=== PATIENT | male | born 1950 | race Native Hawaiian/Other Pacific Islander ===

== ENCOUNTER 2017-03-03 20:40 | Emergency (ER) | payer MEDICARE ==
[2017-03-03 20:40] VITALS: BMI 26.6
[2017-03-03] MEDS ORDERED: Sodium Chloride 0.9% 1,000 ML IV ONE (21:11)
--- NOTE | 2017-03-03 21:11 | C.PDOC ---
History Of Present Illness 66 y/o male pmhx kidney stones presents to the ED with complains of sharp, stabbing right flank pain for the past few days with associated nausea. Denies vomiting, dysuria, hematuria or any other complaints. Time Seen by Provider: 03/03/17 21:11 Chief Complaint (Nursing): Male Genitourinary History Per: Patient History/Exam Limitations: no limitations Onset/Duration Of Symptoms: Days Current Symptoms Are (Timing): Still Present Severity: Moderate Quality Of Discomfort: Sharp, Stabbing Associated Symptoms: Nausea. denies: Fever, Chills, Vomiting, Urinary Symptoms Alleviating Factors: None Recent travel outside of the [place]: No Past Medical History Reviewed: Historical Data, Nursing Documentation, Vital Signs Vital Signs: Last Vital Signs Temp 97.7 F 03/03/17 20:58 Pulse 58 L 03/03/17 20:58 Resp 18 03/03/17 20:58 BP 225/82 H 03/03/17 20:58 Pulse Ox 99 03/03/17 21:25 - Medical History PMH: HTN, Hypercholesterolemia, Kidney Stones (1990, 2014), Chronic Kidney Disease - [facility] Procedures DILATION OF LEFT URETER WITH INTRALUMINAL DEVICE, ENDO (11/09/15) Family History: States: Unknown Family Hx - Social History Hx Alcohol Use: No (not alcholic occ parties) Hx Substance Use: No - Immunization History Hx Tetanus Toxoid Vaccination: No Hx Influenza Vaccination: Yes Hx Pneumococcal Vaccination: No Review Of Systems Constitutional: Negative for: Fever, Chills Gastrointestinal: Positive for: Nausea. Negative for: Vomiting, Abdominal Pain Genitourinary: Negative for: Dysuria, Hematuria Musculoskeletal: Positive for: Other (right flank pain) Skin: Negative for: Rash, Lesions, Jaundice, Bruising Neurological: Negative for: Weakness Psych: Negative for: Anxiety Physical Exam - Physical Exam Appears: Non-toxic, No Acute Distress Skin: Warm, Dry, No Rash Chest: Symmetrical Cardiovascular: Rhythm Regular, No Murmur Respiratory: No Rales, No Rhonchi, No Wheezing Gastrointestinal/Abdominal: Soft, No Tenderness, No Guarding, No Rebound Back: CVA Tenderness (r), Other (right flank pain) Male Genital: No Testicular Swelling, No Inguinal Tenderness, No Inguinal Swelling, No Scrotal Swelling Extremity: Normal ROM Extremity: Bilateral: Atraumatic Neurological/Psych: Oriented x3, Normal Speech, Normal Cognition Gait: Steady ED Course And Treatment - Laboratory Results Result Diagrams: 03/03/17 21:28 03/03/17 21:28 O2 Sat by Pulse Oximetry: 99 (room air) Pulse Ox Interpretation: Normal Reevaluation Time: 22:30 Reassessment Condition: Improved Disposition Counseled Patient/Family Regarding: Studies Performed, Diagnosis, Need For Followup, Rx Given - Disposition Referrals: Rosi Arora MD [Primary Care Provider] - Disposition: HOME/ ROUTINE Disposition Time: 21:11 Condition: FAIR Prescriptions: Ibuprofen [Motrin] 600 mg PO TID PRN #15 tab PRN Reason: Pain, Moderate (4-7) Tamsulosin HCl [Flomax] 0.4 mg PO DAILY #15 cap.er.24h Instructions: Renal Colic (ED), Kidney Stones (DC) - Clinical Impression Clinical Impression: Renal colic on right side, Kidney stone on right side - Scribe Statement The provider has reviewed the documentation as recorded by the Nigel Chen Provider Attestation: All medical record entries made by the Nigel were at my direction and personally dictated by me. I have reviewed the chart and agree that the record accurately reflects my personal performance of the history, physical exam, medical decision making, and the department course for this patient. I have also personally directed, reviewed, and agree with the discharge instructions and disposition.
[2017-03-03] MEDS ORDERED: Sodium Chloride 0.9% 1,000 ML ONE (21:28)
[2017-03-03 21:34] LABS: RBC URINE 25 /hpf (0-3); URINE BACTERIA RARE (<OCC); URINE BILIRUBIN NEGATIVE (NEGATIVE); URINE BLOOD 2+ (NEGATIVE); URINE COLOR Straw (YELLOW); URINE GLUCOSE (UA) 3+ mg/dL (Normal); URINE KETONE NEGATIVE (NEGATIVE); URINE LEUKOCYTE ESTERASE NEG Leu/uL (Negative); URINE PROTEIN 2+ mg/dL (NEGATIVE); URINE UROBILINOGEN NORMAL mg/dL (0.2-1.0); WBC URINE < 1 /hpf (0-5)
[2017-03-03 21:37] LABS: BASO # 0.1 K/uL (0.0-0.2); BASO % 0.9 % (0.0-2.0); EOS # 0.3 K/uL (0.0-0.7); EOS % 2.5 % (0.0-4.0); HEMATOCRIT 43.8 % (35.0-51.0); LYMPH # 2.3 K/uL (1.0-4.3); LYMPH % 21.2 % (20.0-40.0); MEAN CELL VOLUME 89.5 fL (80.0-94.0); MEAN CORPUSCULAR HEMOGLOBIN 29.8 pg (27.0-31.0); MEAN CORPUSCULAR HGB CONC 33.3 g/dL (33.0-37.0); MEAN PLATELET VOLUME 9.4 fL (7.2-11.7); MONO # 0.5 K/uL (0.0-0.8); MONO % 5.1 % (0.0-10.0); RED CELL DISTRIBUTION WIDTH 13.9 % (11.5-14.5); WHITE BLOOD COUNT 10.7 K/uL (4.8-10.8)
[2017-03-03 21:45] LABS: POTASSIUM 4.3 mmol/L (3.6-5.2)
[2017-03-03 21:47] LABS: ALB/GLOB RATIO 1.6 (1.0-2.1); BILIRUBIN,TOTAL 1.2 mg/dL (0.2-1.3); TOTAL PROTEIN 7.3 g/dL (6.3-8.3)
[2017-03-03 21:48] LABS: CALCIUM 8.4 mg/dl (8.6-10.4)
--- NOTE | 2017-03-03 22:27 | CT ---
EXAM: CT Abdomen and Pelvis Without Intravenous Contrast CLINICAL HISTORY: 66 years old, male; Pain and condition or disease; Kidney or ureter condition; Other: Rt inguinal pain and dysuria; Abdominal pain; Flank; Right lower quadrant (rlq); Additional info: R flank pain TECHNIQUE: Axial computed tomography images of the abdomen and pelvis without intravenous contrast. This CT exam was performed using one or more of the following dose reduction techniques: automated exposure control, adjustment of the mA and/or kV according to patient size, and/or use of iterative reconstruction technique. Coronal and sagittal reformatted images were created and reviewed. COMPARISON: CT - ABD PELVIS PO CONTRAST ONLY 11/09/2015 3:27:16 AM FINDINGS: Lower thorax: Minimal atelectasis/scarring. ABDOMEN: Liver: Unremarkable. Gallbladder and bile ducts: No calcified stones. No ductal dilation. Pancreas: 1.5 x 1.7 x 1.6 cm lesion within tail of pancreas, grossly stable. No ductal dilation. Spleen: No splenomegaly. Adrenals: No mass. Kidneys and ureters: Moderate stranding/fluid about RIGHT kidney. Faint punctate calculus within RIGHT kidney. Mild pelvocaliectasis of RIGHT kidney. Mildly dilated RIGHT proximal ureter. 0.3 x 0.3 x 0.3 cm calculus within RIGHT proximal to mid ureter. Stomach and bowel: No definite mural thickening. No obstruction. Small area of fat necrosis adjacent to sigmoid colon. Appendix: Normal caliber. No inflammation. PELVIS: Bladder: Unremarkable. No stones. Reproductive: Unremarkable as visualized. ABDOMEN and PELVIS: Intraperitoneal space: No significant fluid collection. No free air. Bones/joints: Mild degenerative changes of spine. Degenerative anterolisthesis of lower lumbar spine. No acute fracture. Soft tissues: Unremarkable. Vasculature: Unremarkable. No abdominal aortic aneurysm. Lymph nodes: No pathologically enlarged lymph nodes. IMPRESSION: 1. RIGHT proximal to mid ureteral calculus with mild hydroureteronephrosis. 2. Pancreatic lesion, grossly stable. Consider MRI for further characterization. 3. Incidental/non-acute findings are described above.
[2017-03-03 22:54] VITALS: BP 189/85; PULSE 53; RESP 17; TEMP 97.5; O2SAT 100
== END 2017-03-03 23:00 | disposition home or self-care (01) ==
LOC: C.ER 20:40 → SUPCPDRO 20:40 → C.ER 23:00
DX: N20.0 Calculus of kidney (principal)
CPT/HCPCS: 74176; 80053; 81001; 83690; 85025; 96361; 96374; 96375; 99285; J1885; J2405; J7040

== ENCOUNTER 2017-03-06 07:35 | Inpatient (IN) | payer MEDICARE ==
[2017-03-06 07:36] VITALS: BMI 26.6
--- NOTE | 2017-03-06 08:39 | C.PDOC ---
History Of Present Illness 66-year-old male, PMHx includes Kidney stones, presents to the emergency department with complaints of right-sided flank pain that started a few days ago. Patient was seen in ED and diagnosed with a 3mm stone. States he has been experiencing intermittent pain every few hours, prompting his visit. Denies nausea/vomiting, fevers or chills. No symptoms. Time Seen by Provider: 03/06/17 08:10 Chief Complaint (Nursing): Abdominal Pain History Per: Patient History/Exam Limitations: no limitations Onset/Duration Of Symptoms: Days Current Symptoms Are (Timing): Still Present Severity: Moderate Past Medical History Reviewed: Historical Data, Nursing Documentation, Vital Signs Vital Signs: Last Vital Signs Temp 98.9 F 03/06/17 10:22 Pulse 58 L 03/06/17 10:22 Resp 18 03/06/17 10:22 BP 199/89 H 03/06/17 10:22 Pulse Ox 99 03/06/17 10:22 - Medical History PMH: HTN, Hypercholesterolemia, Kidney Stones (1990, 2014), Chronic Kidney Disease - [facility] Procedures DILATION OF LEFT URETER WITH INTRALUMINAL DEVICE, ENDO (11/09/15) Family History: States: No Known Family Hx - Social History Hx Alcohol Use: No (not alcholic occ parties) Hx Substance Use: No - Immunization History Hx Tetanus Toxoid Vaccination: No Hx Influenza Vaccination: Yes Hx Pneumococcal Vaccination: No Review Of Systems Except As Marked, All Systems Reviewed And Found Negative. Constitutional: Negative for: Fever, Chills Cardiovascular: Negative for: Chest Pain Respiratory: Negative for: Shortness of Breath Gastrointestinal: Negative for: Nausea, Vomiting Genitourinary: Negative for: Dysuria Musculoskeletal: Positive for: Back Pain Physical Exam - Physical Exam Appears: Non-toxic, No Acute Distress Skin: Warm, Dry, No Rash Head: Atraumatic, Normacephalic Eye(s): bilateral: Normal Inspection Nose: Normal Oral Mucosa: Moist Lips: Normal Appearing Neck: Normal ROM Respiratory: No Accessory Muscle Use Gastrointestinal/Abdominal: Soft, No Tenderness Back: No CVA Tenderness Extremity: Normal ROM Neurological/Psych: Oriented x3 ED Course And Treatment - Laboratory Results Result Diagrams: 03/06/17 08:35 03/06/17 08:35 O2 Sat by Pulse Oximetry: 100 Medical Decision Making Medical Decision Making: known 3mm kidney stone, will treat pain , assess for infection, and reassess. pt with imaging 3 days ago showing 3 mm stone 1030: noted mild increase in cr. discussed with pmd. prefers inpt management and urology eval inpt. Disposition - Disposition Disposition: HOSPITALIZED Disposition Time: 10:39 Condition: STABLE - Clinical Impression Clinical Impression: Renal stone - Scribe Statement The provider has reviewed the documentation as recorded by the Felicitaibsanjay Braun All medical record entries made by the Felicitaibsanjay were at my direction and personally dictated by me. I have reviewed the chart and agree that the record accurately reflects my personal performance of the history, physical exam, medical decision making, and the department course for this patient. I have also personally directed, reviewed, and agree with the discharge instructions and disposition. Decision To Admit - Pt Status Changed To: Hospital Disposition Of: Inpatient - Admit Certification Admit to Inpatient:: After my assessment, the patient will require hospitalization for at least two midnights. This is because of the severity of symptoms shown, intensity of services needed, and/or the medical risk in this patient being treated as an outpatient. - InPatient: Physician Admission Certification:: pt with increased acute on chronic renal insufficiency. with renal stone. - . Bed Request Type: Regular Admitting Physician: Rosi Arora Patient Diagnosis: Renal stone, Acute on chronic renal failure
[2017-03-06 08:48] LABS: BASO # 0.1 K/uL (0.0-0.2); BASO % 0.7 % (0.0-2.0); EOS # 0.1 K/uL (0.0-0.7); EOS % 0.7 % (0.0-4.0); HEMATOCRIT 42.5 % (35.0-51.0); LYMPH # 1.1 K/uL (1.0-4.3); MEAN CELL VOLUME 89.2 fL (80.0-94.0); MEAN CORPUSCULAR HEMOGLOBIN 29.6 pg (27.0-31.0); MEAN CORPUSCULAR HGB CONC 33.2 g/dL (33.0-37.0); MEAN PLATELET VOLUME 9.5 fL (7.2-11.7); MONO # 0.9 K/uL (0.0-0.8); MONO % 8.6 % (0.0-10.0); NRBC % 0.1 % (0.0-2.0); RED CELL DISTRIBUTION WIDTH 13.7 % (11.5-14.5)
[2017-03-06 08:50] LABS: POTASSIUM 5.1 mmol/L (3.6-5.2)
[2017-03-06 08:52] LABS: ALB/GLOB RATIO 1.2 (1.0-2.1); BILIRUBIN,TOTAL 1.1 mg/dL (0.2-1.3); TOTAL PROTEIN 7.2 g/dL (6.3-8.3)
[2017-03-06 08:53] LABS: CALCIUM 8.8 mg/dl (8.6-10.4)
[2017-03-06 08:56] LABS: URINE COLOR COLORLESS (YELLOW)
[2017-03-06 08:58] LABS: URINE BILIRUBIN NEGATIVE (NEGATIVE); URINE BLOOD 1+ (NEGATIVE); URINE GLUCOSE (UA) 3+ mg/dL (Normal); URINE KETONE NEGATIVE (NEGATIVE)
[2017-03-06 08:59] LABS: RBC URINE 1 /hpf (0-3); URINE LEUKOCYTE ESTERASE NEGATIVE Leu/uL (Negative); URINE PROTEIN 1+ mg/dL (NEGATIVE); URINE UROBILINOGEN NORMAL mg/dL (0.2-1.0); WBC URINE 1 /hpf (0-5)
[2017-03-06] MEDS ORDERED: Sodium Chloride 0.9% 1,000 ML IV ONE (09:29)
[2017-03-06] MEDS ORDERED: Sodium Chloride 0.9% 1,000 ML ONE (09:36)
[2017-03-06] MEDS ORDERED: Labetalol 25mg/5ml Syringe IVP STA (10:50)
[2017-03-06] MEDS ORDERED: METFORMIN HCL PO SCH (13:30)
[2017-03-06] MEDS ORDERED: PIOGLITAZONE HCL PO SCH (13:30)
[2017-03-06] MEDS: Sodium Chloride 0.9% 1,000 ML IV SCH (14:17)
--- NOTE | 2017-03-06 16:17 | US ---
PROCEDURE: Ultrasound of the Kidneys HISTORY: renal colic COMPARISON: 03/03/2017 CT abdomen and pelvis. Summary of findings on the comparison examination: Right proximal to mid ureteral calculus with mild hydronephrosis.. TECHNIQUE: Sonogram of the kidneys. FINDINGS: RIGHT KIDNEY: Measures: 5 x 12 cm. Mild hydronephrosis. Trace perinephric fluid consistent with findings on recent CT scan. No stone, solid mass lesion or hydronephrosis visualized. LEFT KIDNEY: Measures: 4.6 x 10.6 cm. Normal in size, contour and echogenicity. No stone, solid mass lesion or hydronephrosis visualized. OTHER FINDINGS: None. IMPRESSION: Mildly edematous right kidney with a approximately stable hydronephrosis compared to 03/03/2017.
--- NOTE | 2017-03-06 16:43 | CP.PCM.PN ---
Subjective - Date & Time of Evaluation Date of Evaluation: 03/06/17 Time of Evaluation: 16:38 - Subjective Subjective: 66 year old [place] citizen male admitted after two er visits for right flank pain,ct done on first visit shows 3mm right ureteral calculi. Us done today shows persistant hydro but calculi not visyualized pt has persistant pain A ureteral calculi.P will procede with stent insertion tomorrow if pt fails to pass stone Objective - Vital Signs/Intake and Output Vital Signs (last 24 hours): Temp Pulse Resp BP Pulse Ox 98.2 F 65 20 136/75 99 03/06/17 11:13 03/06/17 11:13 03/06/17 11:13 03/06/17 11:13 03/06/17 11:13 Intake and Output: 03/06/17 03/06/17 06:59 18:59 Intake Total 430 Balance 430 - Medications Medications: Current Medications Home Med (Pioglitazone Hcl/Metformin Hcl [Pioglitazone-Metformin 66-427]) 1 tab PO DAILY [facility] Last Admin: 03/06/17 13:40 Dose: Not Given Hydrochlorothiazide (Microzide) 12.5 mg PO DAILY [facility] Last Admin: 03/06/17 14:35 Dose: 12.5 mg Sodium Chloride (Sodium Chloride 0.9%) 1,000 mls @ 60 mls/hr IV .[id number] [facility] Last Admin: 03/06/17 14:17 Dose: 60 mls/hr Ibuprofen (Motrin Tab) 600 mg PO TID PRN PRN Reason: Pain, moderate (4-7) Losartan Potassium (Cozaar) 50 mg PO DAILY [facility] Last Admin: 03/06/17 13:39 Dose: Not Given Metoprolol Tartrate (Lopressor) 50 mg PO DAILY [facility] Last Admin: 03/06/17 13:40 Dose: Not Given Rosuvastatin Calcium (Crestor) 10 mg [address] [facility] Tamsulosin HCl (Flomax) 0.4 mg PO DAILY [facility] Last Admin: 03/06/17 13:39 Dose: Not Given - Labs Labs: PT 10.6 SECONDS (9.7-12.2) 03/06/17 08:35 INR 1.0 03/06/17 08:35 APTT 32 SECONDS (21-34) 03/06/17 08:35
[2017-03-06] MEDS: (Novolog) Insulin Aspart, Recombinant 100 u/ml 10 ml vial SC SCH ×2 (17:52→21:37)
[2017-03-06] MEDS: Enoxaparin 40 mg Syringe SC SCH (17:54)
--- NOTE | 2017-03-06 18:17 | RAD ---
EXAM: XR Abdomen, 1 View CLINICAL HISTORY: 66 years old, male; Condition or disease; Other: Renal stone; Additional info: Follow progress of stone TECHNIQUE: Frontal supine view of the abdomen/pelvis. EXAM DATE/TIME: Exam ordered 03/06/2017 4:45 PM COMPARISON: CT - ABD PELVIS W/O PO OR IV CONT 03/03/2017 9:43:45 PM FINDINGS: Gastrointestinal tract: Unremarkable. No dilation. Bones/joints: A calcification projects below the right transverse process of L4. Vasculature: There is a vascular calcification right hemipelvis. IMPRESSION: Right ureteral calcification noted 6 mm below the right transverse of L4. No significant change when compared with CT scan dated 03/03/2017.
--- NOTE | 2017-03-06 20:34 | HP ---
HISTORY OF PRESENT ILLNESS: This is a 66-year-old [place] male who came to the Emergency Room with hi story of right-sided flank pain, severe at times. The patient has this pain for the last few days. This patient was seen in the office the day before for the same. The patient was also in the Emergen cy Room for the same. The patient was found to have a right renal stone. The patient denies having any fever. Two days ago, the patient's BUN was 27 and creatinine was 1.6. Today in the Emergency Ro om, the patient has a creatinine of 2.9 and repeat creatinine of 2.7 and BUN 29. Would suggest acute renal failure. REVIEW OF SYSTEMS: GASTROINTESTINAL: As mentioned above. RESPIRATORY: Negative for shortness of breath. CARDIOVASCULAR: Negative for chest pain. PSYCHIATRIC: Repeat, the patient is stable. EXTREMITIES: No edema of the legs. PAST MEDICAL HISTORY: History of hypertension and renal stone in the past. The patient has mild chr onic renal failure. FAMILY HISTORY: Nothing in particular. SOCIAL HISTORY: Nonsmoker, nonalcoholic, no IVDA. ALLERGIES: No known allergies. MEDICATIONS: Metoprolol, metformin, and ibuprofen. PHYSICAL EXAMINATION: GENERAL: This is a 66-year-old [place] male, awake, alert, in severe abdominal pain. VITAL SIGNS: Temperature 98.9, pulse 58, respirations 18, and blood pressure 199/89 mmHg, pulse ox i s 99% at room air. HEENT: Normal. NECK: JVP is flat. Carotids, no bruit. LUNGS: No rales, no wheezing. HEART: S1, S2 normal. No gallop, no murmur. ABDOMEN: Soft, right-sided flank tenderness present. CENTRAL NERVOUS SYSTEM: No focal neurological deficit. EXTREMITIES: No edema of the legs. LABORATORY DATA: On admission, BUN is 29, creatinine is 2.7, which is elevated. Blood sugar is 296. Hemoglobin 14.1. The patient had a CT scan of the abdomen done, which shows a 3 mm right ureteric stone. IMPRESSION: 1. Severe abdominal pain. 2. Acute on chronic renal failure. 3. Renal stones. 4. Accelerated hypertension. PLAN: The patient will be admitted to the floor. We will continue all the medications. We will get consult with Dr. Zelaya. Other workup as needed. Rosi Arora MD cc: [phone] TT: 03/06/2017 20:32:49 mn
[2017-03-07 06:34] LABS: POTASSIUM 4.6 mmol/L (3.6-5.2)
[2017-03-07 06:37] LABS: CALCIUM 8.7 mg/dl (8.6-10.4)
[2017-03-07] MEDS ORDERED: Gentamicin 160 MG in Sodium Chloride 0.9% 100 ML IVPB ONE (08:00)
[2017-03-07] MEDS: (Novolog) Insulin Aspart, Recombinant 100 u/ml 10 ml vial SC SCH ×4 (08:01→21:14)
[2017-03-07] MEDS: Enoxaparin 40 mg Syringe SC SCH (09:37)
[2017-03-07] MEDS ORDERED: Sodium Chloride 0.9% 500 ML IV ONE ×2 (10:48→11:22)
[2017-03-07] MEDS ORDERED: Lidocaine 2% Jelly (Uro-Jet) ONE (10:49)
[2017-03-07] MEDS ORDERED: Ciprofloxacin 400mg/200ml D5W 400 MG/200 ML BAG IVPB ONE (10:49)
[2017-03-07] MEDS ORDERED: Iohexol 240 (50 ml) ONE (10:50)
[2017-03-07] MEDS ORDERED: Propofol 10 mg/ml Inj (20 ML) ONE (10:52)
[2017-03-07] MEDS ORDERED: ePHEDrine 50 mg/ml Inj ONE (10:58)
--- NOTE | 2017-03-07 11:09 | PCM.SURG1 ---
Surgeon's Initial Post Op Note - Surgeon's Notes Surgeon: Garcia Social Work Specialist: willow Type of Anesthesia: General LMA Anesthesia Administered By: staff Pre-Operative Diagnosis: Right mid ureteral calculi Operative Findings: Right mid ureteral calculi Post-Operative Diagnosis: same Operation Performed: Cysto insertion of right ureteral stent Specimen/Specimens Removed: na Estimated Blood Loss: EBL {In ML}: 0 Blood Products Given: N/A Drains Used: No Drains Post-Op Condition: Good Date of Surgery/Procedure: 03/07/17 Time of Surgery/Procedure: 11:09
[2017-03-07] MEDS ORDERED: HYDROmorphone 0.5 mg/0.5 ml ISec IVP PRN (11:21)
--- NOTE | 2017-03-07 12:17 | CP.PCM.PN ---
Subjective - Date & Time of Evaluation Date of Evaluation: 03/07/17 Time of Evaluation: 12:15 - Subjective Subjective: PT WENT FOR OR. URETERIC STENT RT SIDE. VA WNL. BS HIGH. Objective - Vital Signs/Intake and Output Vital Signs (last 24 hours): Temp Pulse Resp BP Pulse Ox 98.6 F 63 15 162/81 H 99 03/07/17 12:11 03/07/17 12:11 03/07/17 12:11 03/07/17 12:11 03/07/17 12:11 Intake and Output: 03/07/17 03/07/17 06:59 18:59 Intake Total 480 Output Total 600 Balance -120 - Medications Medications: Current Medications Enoxaparin Sodium (Lovenox) 40 mg SC DAILY [facility] Last Admin: 03/07/17 09:37 Dose: Not Given Hydrochlorothiazide (Microzide) 12.5 mg PO DAILY [facility] Last Admin: 03/07/17 09:37 Dose: Not Given Hydromorphone HCl (Dilaudid) 0.5 mg IVP Q15M PRN PRN Reason: Pain, moderate (4-7) Stop: 03/07/17 13:21 Sodium Chloride (Sodium Chloride 0.9%) 1,000 mls @ 60 mls/hr IV .[id number] [facility] Last Admin: 03/06/17 14:17 Dose: 60 mls/hr Ibuprofen (Motrin Tab) 600 mg PO TID PRN PRN Reason: Pain, moderate (4-7) Insulin Aspart (Novolog) 0 unit SC ACHS [facility] PRN Reason: Protocol Last Admin: 03/07/17 08:01 Dose: Not Given Losartan Potassium (Cozaar) 50 mg PO DAILY [facility] Last Admin: 03/07/17 09:41 Dose: 50 mg Metoclopramide HCl (Reglan) 10 mg IVP ONCE PRN PRN Reason: Nausea/Vomiting Stop: 03/07/17 13:21 Metoprolol Tartrate (Lopressor) 50 mg PO DAILY [facility] Last Admin: 03/07/17 09:41 Dose: 50 mg Ondansetron HCl (Zofran Inj) 4 mg IVP ONCE PRN PRN Reason: Nausea/Vomiting Stop: 03/07/17 13:21 Pioglitazone HCl (Actos) 30 mg PO DAILY [facility] Last Admin: 03/07/17 09:31 Dose: Not Given Rosuvastatin Calcium (Crestor) 10 mg PO HS [facility] Last Admin: 03/06/17 21:36 Dose: 10 mg Tamsulosin HCl (Flomax) 0.4 mg PO DAILY [facility] Last Admin: 03/07/17 09:31 Dose: Not Given - Labs Labs: 03/07/17 06:11 PT 10.6 SECONDS (9.7-12.2) 03/06/17 08:35 INR 1.0 03/06/17 08:35 APTT 32 SECONDS (21-34) 03/06/17 08:35 - Constitutional Appears: No Acute Distress, Chronically Ill - Eye Exam Eye Exam: Normal appearance, PERRL - ENT Exam ENT Exam: Mucous Membranes Moist - Neck Exam Neck Exam: Normal Inspection - Respiratory Exam Respiratory Exam: Clear to Ausculation Bilateral - Cardiovascular Exam Cardiovascular Exam: REGULAR RHYTHM, +S1, +S2 - GI/Abdominal Exam GI & Abdominal Exam: Soft, Normal Bowel Sounds - Extremities Exam Extremities Exam: Full ROM, Normal Capillary Refill, Normal Inspection. absent : Joint Swelling, Pedal Edema - Back Exam Back Exam: NORMAL INSPECTION - Neurological Exam Neurological Exam: Alert, Awake, CN II-XII Intact, Normal Gait, Oriented x3 Assessment and Plan - Assessment and Plan (Free Text) Assessment: RENAL STONE. HTN. DM. ARF. Plan: CT PRESENT TREATMENT.
--- NOTE | 2017-03-07 12:26 | RAD ---
PROCEDURE: Intraoperative Fluoroscopy. HISTORY: RT. RENAL CALCULI FINDINGS: Fluoroscopic assistance was provided for right stent placement.
[2017-03-07] MEDS: Sodium Chloride 0.9% 1,000 ML IV SCH ×2 (15:15→23:29)
[2017-03-07 16:29] VITALS: RESP 20
--- NOTE | 2017-03-07 17:22 | OP ---
PROCEDURE DATE: 03/07/2017 Prior to the procedure, a detailed informed consent was obtained from the patient and the CAT scan re port, CAT scan films and ultrasound report and films were reviewed in the ER. The patient was asked to sign a detailed informed consent. He is aware of the risks and complications of the procedure. T he patient also confirms that his pain is on his right as is the stone on the CAT scan and hydronephr osis on the ultrasound. The patient was identified, brought into the room, and prophylactic antibiot ics were received. After it was confirmed that he signed the informed consent, he was draped and pre pped in the usual manner. Prophylactic antibiotics were given. He was cystoscoped with a #21 Storz panendoscope. The pendulous and membranous urethras were normal. The prostatic urethra showed minim al prostatic hypertrophy. The bladder was entered atraumatically. The right ureteral orifice was ca nnulized with a 0.038 guidewire and this was passed up to the renal pelvis under fluoroscopic control , bypassing the stone, and a double-J stent was passed over this with little difficulty. It was posi tioned properly with the distal end in the renal pelvis and the proximal end in the bladder. The pat ient tolerated the procedure well. The bladder was drained. He was sent to the recovery room in goo d condition. The patient and his son were given detailed postoperative instructions and told to foll ow up in our office in 1 week. Constantino Zelaya MD cc: [phone] TT: 03/07/2017 17:21:03 carlos enrique
--- NOTE | 2017-03-07 17:36 | CON ---
DATE: 03/07/2017 CHIEF COMPLAINT: Right flank pain. HISTORY OF PRESENT ILLNESS: The patient has had right flank pain for several days. He has made 2 tr ips to the ER and was admitted on the second trip after CAT scan and ultrasound confirmed right hydro nephrosis and mid ureteral calculi. The patient continues to have pain. He has a history of a simil ar episode in October, treated with a ureteroscopy and lithotripsy. He denies any other complaints. REVIEW OF SYSTEMS: RESPIRATORY: No shortness of breath, no wheezing. CARDIOVASCULAR: The patient has no chest pain or palpitations. GASTROINTESTINAL: The patient has no nauseousness or vomiting, no change in bowel habits. GENITOURINARY: The patient has a history of right flank pain. He has a history of renal calculi in the past. NEUROLOGICAL: The patient has no history of tremors, weakness or paralysis. No history of seizures. INTEGUMENT: The patient has no history of skin rash. SOCIAL AND FAMILY HISTORY: Noncontributory. PHYSICAL EXAMINATION: VITAL SIGNS: Within normal limits. HEENT: Within normal limits. NECK: Supple. There are no bruits, nodes, or mass. CHEST: Clear bilaterally. There are no rales or rhonchi. HEART: Normal sinus rhythm. ABDOMEN: Soft, nontender. There is no anterior abdominal tenderness. There is slight right CVA tend erness. GENITOURINARY: The testicles, epididymis, cord, and penis are normal. EXTREMITIES: Normal. VASCULAR: Normal. NEUROLOGICAL: Normal. IMAGING: I have also reviewed the CAT scan and the ultrasound. There is a right hydronephrosis to the mid ureteral calculi. PLAN: We will start the patient on Flomax and proceed with cystoscopy and stent insertion if stone f ails to pass by tomorrow. Constantino Zelaya MD cc: [phone] TT: 03/07/2017 17:35:16 Confirmation # [id number] Dictation # [id number] ln
[2017-03-08 00:16] VITALS: TEMP 98.5
[2017-03-08] MEDS: Sodium Chloride 0.9% 1,000 ML IV SCH (06:52)
[2017-03-08 08:21] VITALS: BP 185/95; PULSE 72; O2SAT 99
[2017-03-08] MEDS: (Novolog) Insulin Aspart, Recombinant 100 u/ml 10 ml vial SC SCH ×2 (08:33→12:50)
[2017-03-08] MEDS: Enoxaparin 40 mg Syringe SC SCH (09:37)
--- NOTE | 2017-03-16 11:21 | DS ---
This is a 66-year-old Italian male who came to the Emergency Room with history of severe right-sided a bdominal pain associated with nausea. The patient has this pain 2 days prior to the admission. The patient was found to have a right side renal stone. The patient initially was discharged home on bernardo n medication, but the pain continued, so he came back to the Emergency Room. PAST MEDICAL HISTORY: History of hypertension, diabetes and renal stone. MEDICATIONS: Reviewed. HOSPITAL COURSE: During the hospital course, physical examination showed elevated blood pressure. B lood sugar was high also. Heart and lungs were within normal limits. Abdomen was having severe abdo brandon pain with tenderness and pain. [employer] was within normal limit. Dr. Zelaya was requested for consu ltation, urology. The patient has cystoscopy and stent kept during the hospital course. On stabiliz ation, the patient was discharged home with the same medications. FINAL DIAGNOSES: Severe abdominal pain. Right renal stone with renal colic. Acute renal failure. Diabetes and accelerated hypertension. The patient will be followed in my office in 2 weeks. Rosi Arora MD cc: [phone] TT: 03/16/2017 11:21:19 tn
== END 2017-03-08 14:25 | disposition home or self-care (01) | DRG 694 ==
LOC: C.ER 07:35 → C.9E 09:37 → C.3T 10:37
PROVIDERS: ADMIT Internal Medicine; ATTEND Internal Medicine
PROC: 0T768DZ Dilation of Right Ureter with Intraluminal Device, Via Natural or Artificial Opening Endoscopic (ICD-10-PCS; principal; 2017-03-07 08:30)
DX: N13.2 Hydronephrosis with renal and ureteral calculous obstruction (principal); N17.9 Acute kidney failure, unspecified; I12.9 Hypertensive chronic kidney disease with stage 1 through stage 4 chronic kidney disease, or unspecified chronic kidney disease; N18.2 Chronic kidney disease, stage 2 (mild); N40.0 Benign prostatic hyperplasia without lower urinary tract symptoms; E78.00 Pure hypercholesterolemia, unspecified; Z87.442 Personal history of urinary calculi

== ENCOUNTER 2017-05-24 08:39 | Day surgery (SDC) | payer MEDICARE ==
[2017-05-05 14:28] VITALS: BMI 31.8
[~2017-05-24 08:39] MED LIST: Gentamicin 160 MG in Sodium Chloride 0.9% 100 ML IVPB ONE
[2017-05-24] MEDS ORDERED: Ciprofloxacin 400mg/200ml D5W 400 MG/200 ML BAG IVPB ONE (09:42)
[2017-05-24] MEDS ORDERED: Lidocaine 2% Jelly (Uro-Jet) ONE (09:42)
[2017-05-24] MEDS ORDERED: Lactated Ringer's 1,000 ML IV ONE (10:05)
[2017-05-24] MEDS ORDERED: Midazolam 2 MG/2 ML VIAL ONE (10:06)
[2017-05-24] MEDS ORDERED: Propofol 10 mg/ml Inj (20 ML) ONE (10:06)
--- NOTE | 2017-05-24 10:25 | PCM.SURG1 ---
Surgeon's Initial Post Op Note - Surgeon's Notes Surgeon: Garcia Broommaking Supervisor: Lila Type of Anesthesia: General Mask Anesthesia Administered By: staff Pre-Operative Diagnosis: Right ureteral stent Operative Findings: same Post-Operative Diagnosis: same Operation Performed: Cysto removal of stent Specimen/Specimens Removed: stent Estimated Blood Loss: EBL {In ML}: 0 Blood Products Given: N/A Drains Used: No Drains Post-Op Condition: Good Date of Surgery/Procedure: 05/24/17 Time of Surgery/Procedure: 10:25
[2017-05-24 10:50] VITALS: O2SAT 100
[2017-05-24 11:44] VITALS: TEMP 97.8
[2017-05-24 12:28] VITALS: BP 160/80; PULSE 62; RESP 20
--- NOTE | 2017-05-24 21:43 | OP ---
PREOPERATIVE DIAGNOSIS: Right ureteral stents, status post lithotripsy. POSTOPERATIVE DIAGNOSIS: Right ureteral stents, status post lithotripsy. PROCEDURE: Cystoscopy, removal of stent. DESCRIPTION OF PROCEDURE: As follows; a detailed informed consent was obtained from the patient. All risks and complications were explained to the patient via location manager into his son prior to procedure. The patient was brought into the room and identified. A timeout was taken according to the rules and regulations of [facility]. He received prophylactic antibiotics and was draped and prepped in the usual manner. The patient was cystoscope #21 *------* urethra are normal. 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 The bladder was entered atraumatically. There was a stent seen protruding from the right ureteral orifice, grasped and removed. The remainder of the bladder was inspected thoroughly. There was no evidence urothelium, tumor or stone. The patient has signs of obstructive uropathy. He should consider a green light laser or a medical therapy for BPH. Constantino Zelaya MD
== END 2017-05-24 12:15 | disposition home or self-care (01) ==
LOC: C.SDS 08:39
PROVIDERS: ATTEND Urology
DX: Z46.6 Encounter for fitting and adjustment of urinary device (principal); N20.0 Calculus of kidney
CPT/HCPCS: 52310; 82948; 88300; J0744; J1580; J7120